=== PATIENT | female | born 1945 | race Caucasian/White ===

== ENCOUNTER 2017-10-05 14:39 | Outpatient (CLI) | payer MEDICARE | END 2017-10-05 14:40 | disposition home or self-care (01) | LOC: BICMAMMO 14:39 | PROVIDERS: ATTEND Family Medicine | DX: Z12.31 Encounter for screening mammogram for malignant neoplasm of breast (principal) | CPT/HCPCS: 77063; 77067 ==

== ENCOUNTER 2018-06-16 10:40 | Outpatient (CLI) | payer MEDICARE ==
--- NOTE | 2018-06-16 11:37 | BD ---
DEXA BONE DENSITY STUDY: History: Post-menopausal Lumbar Spine: BMD (g/cm2) L1 0.846 T-Score: -1.3 L2 0.891 T-Score: -1.2 L3 0.854 T-Score: -2.1 L4 0.796 T-Score: -2.4 L1-L4 0.845 T-Score: -1.8 Femoral Neck: 0.698 T-Score: -1.4 Total Femur: 0.921 T-Score: -0.2 Impression: 1. Osteopenia of lumbar spine left femoral neck. 2. 10-year fracture risk for osteoporotic fracture is 15%, hip fracture 3.3%. These fracture probabil ities are calculated for an untreated patient. POS: [facility]
== END 2018-06-16 10:41 | disposition home or self-care (01) ==
LOC: BICMAMMO 10:40
PROVIDERS: ATTEND Family Medicine
DX: Z13.820 Encounter for screening for osteoporosis (principal); M85.852 Other specified disorders of bone density and structure, left thigh; Z98.84 Bariatric surgery status
CPT/HCPCS: 77080

== ENCOUNTER 2018-10-12 08:31 | Outpatient (CLI) | payer MEDICARE | END 2018-10-12 08:32 | disposition home or self-care (01) | LOC: BICMAMMO 08:31 | PROVIDERS: ATTEND Family Medicine | DX: Z12.31 Encounter for screening mammogram for malignant neoplasm of breast (principal) | CPT/HCPCS: 77063; 77067 ==

== ENCOUNTER 2019-08-01 10:41 | Outpatient (CLI) | payer MEDICARE ==
--- NOTE | 2019-08-01 10:55 | RAD ---
Exam: Chest 2 views HISTORY:Pneumonia Comparison: 07/17/2016 FINDINGS: Lungs: Interstitial prominence, bilaterally Cardiac silhouette: Normal size Pulmonary vessels: Normal Pleural Spaces: Clear Pneumothorax: None Osseous abnormalities: None of acuity. IMPRESSION: Interstitial prominence bilaterally. This may be on the basis of interstitial lung diseas e, or edema. Correlate clinically.
== END 2019-08-01 10:42 | disposition home or self-care (01) ==
LOC: BICRAD 10:41
PROVIDERS: ATTEND Family Medicine
DX: J18.9 Pneumonia, unspecified organism (principal)
CPT/HCPCS: 71046

== ENCOUNTER 2022-07-16 11:31 | Outpatient (CLI) | payer MEDICARE | END 2022-07-16 11:32 | disposition home or self-care (01) | LOC: BICMAMMO 11:31 | PROVIDERS: ATTEND Family Medicine | DX: Z12.31 Encounter for screening mammogram for malignant neoplasm of breast (principal); Z85.828 Personal history of other malignant neoplasm of skin | CPT/HCPCS: 77063; 77067 ==

== ENCOUNTER 2023-09-24 11:04 | Outpatient (CLI) | payer MEDICARE | END 2023-09-24 11:05 | disposition home or self-care (01) | LOC: BICRAD 11:04 | PROVIDERS: ATTEND Podiatrist | DX: M25.571 Pain in right ankle and joints of right foot (principal); M25.371 Other instability, right ankle; M24.871 Other specific joint derangements of right ankle, not elsewhere classified; R60.0 Localized edema ==

== ENCOUNTER 2023-09-30 12:29 | Outpatient (CLI) | payer MEDICARE | END 2023-09-30 12:30 | disposition home or self-care (01) | LOC: BICMAMMO 12:29 | PROVIDERS: ATTEND Family Medicine | DX: Z12.31 Encounter for screening mammogram for malignant neoplasm of breast (principal); Z85.828 Personal history of other malignant neoplasm of skin | CPT/HCPCS: 77063; 77067 ==

== ENCOUNTER 2024-06-29 09:07 | Outpatient (CLI) | payer MEDICARE | END 2024-06-29 09:08 | disposition home or self-care (01) | LOC: BICMAMMO 09:07 | PROVIDERS: ATTEND Family Medicine | DX: E28.39 Other primary ovarian failure (principal); Z78.0 Asymptomatic menopausal state; M85.89 Other specified disorders of bone density and structure, multiple sites | CPT/HCPCS: 77080 ==

== ENCOUNTER 2025-08-15 15:23 | Outpatient (CLI) | payer MEDICARE | END 2025-08-15 15:24 | disposition home or self-care (01) | LOC: BICMAMMO 15:23 | PROVIDERS: ATTEND Family Medicine | DX: Z12.31 Encounter for screening mammogram for malignant neoplasm of breast (principal); Z85.828 Personal history of other malignant neoplasm of skin | CPT/HCPCS: 77063; 77067 ==